=== PATIENT | male | born 1985 | race African-American/Black ===

== ENCOUNTER 2022-07-05 01:26 | Inpatient (IN) | payer MEDICAID ==
[~2022-07-05] VITALS: Ht 177.8 cm; Wt 83.4 kg
[2022-07-05 03:06] LABS: Albumin 3.9 g/dL (3.4-5.0); BUN/Creatinine Ratio 4.9; Basophils # (auto) 0.1 10 ^3/uL (0-0.2); Calcium 8.9 mg/dL (8.5-10.1); Eosinophils # (auto) 0 10 ^3/uL (0-0.8); Eosinophils % (auto) 0.2 % (0.0-7.0); Hematocrit 42.5 % (41.0-53.0); Hemoglobin 14.1 g/dL (13.5-17.5); Lymphocytes # (auto) 1.2 10 ^3/uL (0.4-5.4); Lymphocytes % (auto) 12.2 % (10.0-50.0); Mean Corpuscular Hemoglobin 28.8 pg (28.0-32.0); Mean Corpuscular Hgb Conc. 33.2 g/dL (32.0-36.0); Monocytes # (auto) 0.7 10 ^3/uL (0-1.3); Monocytes % (auto) 6.9 % (0.0-12.0); Neutrophils # (auto) 7.6 10 ^3/uL (1.6-8.6); Neutrophils % (auto) 79.7 % (37.0-80.0); Red Blood Cells 4.88 10^6/uL (4.5-5.90); Red Cell Distribution Width 13.3 % (11.8-14.3); White Blood Cell 9.5 10^3/uL (4.4-10.8)
[2022-07-05 03:08] LABS: Bilirubin, Total 0.4 mg/dL (0.2-1.0); Total Protein 7.3 g/dL (6.4-8.2)
[2022-07-05 04:23] LABS: Urine Bacteria NONE SEEN /hpf (None Seen); Urine Blood Negative /uL (Negative); Urine Mucus FEW (None Seen); Urine Specific Gravity 1.011 (1.001-1.035); Urine WBC 1 /hpf (0 - 3)
[2022-07-05] MEDS ORDERED: cefTRIAXone 1GM/50ML D5W 50 ML IV ONE (08:45)
[2022-07-05] MEDS ORDERED: SODIUM CHLORIDE 0.9% 1,000 ML IV ONE (08:45)
[2022-07-05] MEDS ORDERED: ONDANSETRON HCL 4 MG/2 ML VIAL IV ONE (09:30)
[2022-07-05] MEDS ORDERED: MORPHINE SULFATE 4 MG/ML SYR/VIAL IV ONE (09:30)
[2022-07-05] MEDS ORDERED: ONDANSETRON HCL 4 MG/2 ML VIAL IV PRN (10:45)
[2022-07-05] MEDS ORDERED: hydrALAZINE HCL 20 MG/ML VL IV PRN (11:15)
[2022-07-05 11:17] LABS: INR 0.96 (0.9-1.15)
[2022-07-05] MEDS: MORPHINE SULFATE INJ 2 MG/ml SYRG IV PRN ×2 (11:56→17:54)
[2022-07-05] MEDS: LACTATED RINGER'S 1,000 ML IV SCH ×2 (11:56→19:15)
[2022-07-05] MEDS: metroNIDAZOLE 500MG/100ML 100 ML IV SCH ×2 (14:38→21:13)
[2022-07-05 22:00] VITALS: BP 121/77
[2022-07-06] MEDS: LACTATED RINGER'S 1,000 ML IV SCH ×3 (03:34→17:53)
[2022-07-06 05:00] VITALS: BP 127/74
[2022-07-06] MEDS: metroNIDAZOLE 500MG/100ML 100 ML IV SCH ×3 (05:50→21:29)
[2022-07-06 06:25] LABS: Basophils # (auto) 0 10 ^3/uL (0-0.2); Basophils % (auto) 0.4 % (0.0-2.0); Eosinophils # (auto) 0.1 10 ^3/uL (0-0.8); Eosinophils % (auto) 0.8 % (0.0-7.0); Hematocrit 41.8 % (41.0-53.0); Hemoglobin 13.4 g/dL (13.5-17.5); Lymphocytes # (auto) 1.1 10 ^3/uL (0.4-5.4); Lymphocytes % (auto) 16.8 % (10.0-50.0); Mean Corpuscular Hemoglobin 28.3 pg (28.0-32.0); Mean Corpuscular Hgb Conc. 32.1 g/dL (32.0-36.0); Monocytes # (auto) 0.8 10 ^3/uL (0-1.3); Monocytes % (auto) 11.7 % (0.0-12.0); Neutrophils # (auto) 4.6 10 ^3/uL (1.6-8.6); Neutrophils % (auto) 70.3 % (37.0-80.0); Nucleated Red Blood Cells % 0.1 %; Red Blood Cells 4.75 10^6/uL (4.5-5.90); Red Cell Distribution Width 13.7 % (11.8-14.3); White Blood Cell 6.6 10^3/uL (4.4-10.8)
[2022-07-06 06:26] LABS: Albumin 3.3 g/dL (3.4-5.0); Calcium 8.7 mg/dL (8.5-10.1); Potassium 4.2 mmol/L (3.5-5.1)
[2022-07-06 06:29] LABS: BUN/Creatinine Ratio 5.4; Bilirubin, Total 0.7 mg/dL (0.2-1.0); Total Protein 6.3 g/dL (6.4-8.2)
[2022-07-06 08:00] VITALS: BP 138/81
[2022-07-06] MEDS ORDERED: ONDANSETRON HCL 4 MG/2 ML VIAL IV ONE (11:45)
[2022-07-06 12:00] VITALS: BP 134/81
[2022-07-06] MEDS ORDERED: BUPIVACAINE W/ EPINEPH 0.25% INJ 50ML MDV IJ ONE (12:45)
[2022-07-06] MEDS ORDERED: HYDROcodone-ACET 5/325MG TAB PO PRN (13:15)
[2022-07-06] MEDS ORDERED: cefTRIAXone 1GM/50ML D5W 50 ML IV ONE (13:15)
[2022-07-06] MEDS ORDERED: ceFAZolin 1GM/50ML 100 ML IV ONE (13:26)
[2022-07-06] MEDS ORDERED: fentaNYL CITRATE 100 MCG/2 ML VL ONE (13:38)
[2022-07-06] MEDS ORDERED: MIDAZOLAM HCL 2MG/2ML 2ml VIAL (1mg/ml) ONE (13:39)
[2022-07-06] MEDS ORDERED: MEPERIDINE HCL (50 MG/ML) 1 ML VIAL ONE (13:39)
[2022-07-06] MEDS ORDERED: LABETALOL HCL 5 MG/ML 4ML SYRINGE IV PRN (13:45)
[2022-07-06] MEDS ORDERED: MORPHINE SULFATE 4 MG/ML SYR/VIAL IV PRN (13:45)
[2022-07-06] MEDS ORDERED: MIDAZOLAM HCL 2MG/2ML 2ml VIAL (1mg/ml) IV PRN (13:45)
[2022-07-06] MEDS ORDERED: ONDANSETRON HCL 4 MG/2 ML VIAL IV PRN (13:45)
[2022-07-06] MEDS ORDERED: ePHEDrine SULFATE 50 MG/ML AMP IV PRN (13:45)
[2022-07-06] MEDS ORDERED: HYDROmorphone HCL 2 MG/ML VL/or syr IV PRN ×2 (13:45→15:30)
[2022-07-06] MEDS ORDERED: ROCURONIUM 10MG/ML 10ML VIAL IV ONE (14:33)
[2022-07-06] MEDS ORDERED: DexAMETHasone SOD PHOS 10MG/1ML VIAL INJ ONE (14:33)
[2022-07-06] MEDS ORDERED: PROPOFOL 10 MG/ML 20 ML IV ONE (14:33)
[2022-07-06] MEDS: D5W/SOD CHL 0.45%/KCL 20MEQ 1,000 ML IV SCH ×2 (15:30→23:50)
[2022-07-06] MEDS ORDERED: ACETAMINOPHEN/CODEINE#3 (300/30mg) TAB PO PRN (15:30)
[2022-07-06 16:00] VITALS: BP 142/88
[2022-07-06] MEDS: MORPHINE SULFATE INJ 2 MG/ml SYRG IV PRN (20:36)
[2022-07-06 23:24] VITALS: BP 159/90
[2022-07-07] MEDS: MORPHINE SULFATE INJ 2 MG/ml SYRG IV PRN (00:24)
[2022-07-07] MEDS: D5W/SOD CHL 0.45%/KCL 20MEQ 1,000 ML IV SCH ×2 (02:17→08:10)
[2022-07-07] MEDS: LACTATED RINGER'S 1,000 ML IV SCH ×2 (03:15→11:15)
[2022-07-07] MEDS: metroNIDAZOLE 500MG/100ML 100 ML IV SCH ×2 (05:39→13:52)
[2022-07-07 05:44] VITALS: BP 137/92
[2022-07-07 06:41] LABS: Basophils # (auto) 0 10 ^3/uL (0-0.2); Basophils % (auto) 0.1 % (0.0-2.0); Eosinophils # (auto) 0 10 ^3/uL (0-0.8); Hematocrit 40.7 % (41.0-53.0); Hemoglobin 13.3 g/dL (13.5-17.5); Lymphocytes # (auto) 0.8 10 ^3/uL (0.4-5.4); Lymphocytes % (auto) 7.3 % (10.0-50.0); Mean Corpuscular Hemoglobin 28.3 pg (28.0-32.0); Mean Corpuscular Hgb Conc. 32.8 g/dL (32.0-36.0); Mean Corpuscular Volume 86.3 fL (80.0-100.0); Monocytes # (auto) 0.8 10 ^3/uL (0-1.3); Monocytes % (auto) 7.9 % (0.0-12.0); Neutrophils # (auto) 8.7 10 ^3/uL (1.6-8.6); Neutrophils % (auto) 84.7 % (37.0-80.0); Red Blood Cells 4.71 10^6/uL (4.5-5.90); Red Cell Distribution Width 13.1 % (11.8-14.3); White Blood Cell 10.3 10^3/uL (4.4-10.8)
[2022-07-07 07:00] LABS: Potassium 4.4 mmol/L (3.5-5.1)
[2022-07-07 07:07] LABS: Albumin 3.1 g/dL (3.4-5.0); BUN/Creatinine Ratio 6.5; Bilirubin, Total 0.3 mg/dL (0.2-1.0); Calcium 8.6 mg/dL (8.5-10.1); Total Protein 6.4 g/dL (6.4-8.2)
[2022-07-07 08:00] VITALS: BP 134/78
[2022-07-07 08:22] VITALS: BP 134/78
[2022-07-07] MEDS ORDERED: cefTRIAXone 1GM/50ML D5W 50 ML IV SCH (09:00)
[2022-07-07] MEDS ORDERED: PANTOPRAZOLE 40 MG/10 ML VIAL INJ IV SCH (10:00)
[2022-07-07 12:00] VITALS: BP 154/72
[2022-07-07 14:28] VITALS: BP 154/72
== END 2022-07-07 15:25 | disposition home or self-care (01) | DRG 234 ==
LOC: ER 01:26 → OVERFLOW 10:37 → WEST WING 17:10
PROVIDERS: ADMIT Registered Nurse; ATTEND Internal Medicine
PROC: 0DTJ4ZZ Resection of Appendix, Percutaneous Endoscopic Approach (ICD-10-PCS; principal; 2022-07-06 14:17)
DX: K35.80 Unspecified acute appendicitis (principal); I10 Essential (primary) hypertension; Z20.822 Contact with and (suspected) exposure to COVID-19
CPT/HCPCS: 36415; 74176; 76705; 80053; 81001; 83605; 83690; 85025; 85610; 86850; 86900; 86901; 87040; 96365; 96368; 96375; C9113; G0378; J0690; J0696; J1100; J2250; J2405; J2704; J3490